=== PATIENT | female | born 1960 | race Caucasian/White ===

== ENCOUNTER 2021-12-21 19:18 | Emergency (ER) | payer OTHER, SELFPAY ==
[2021-12-21 19:32] VITALS: BP 147/73; PULSE 62; O2SAT 96; BMI 27.4
--- NOTE | 2021-12-21 20:13 | ED.WOUNDLAC ---
HPI - Wound/Laceration General Time Seen by Provider: 20:13 Date Seen: 12/21/21 Chief Complaint: Laceration/Wound Stated Complaint: LEFT INDEX FINGER LACERATION WITH SCISSORS Time Seen by Provider: 12/21/21 19:49 Source: patient and RN notes reviewed Mode of arrival: ambulatory Limitations: no limitations History of Present Illness HPI narrative: Patient is a very pleasant 61-year-old woman coming in with a wound on her left index finger. She was attempting to open a package that she was using a scissors on. She accidentally stabbed her left 2nd finger with the scissors. She is on an 81 mg aspirin for history of recurrent miscarriages in found to have antiphospholipid syndrome. She has never had a DVT. Despite pressure directly on this wound for over 30 minutes, it is still oozing. She denies any numbness tingling. Her tetanus was just updated and is up-to-date in August of 2021. She sustained no other injuries. Onset (ago): minute(s) Place: home Patient tetanus UTD: Yes Context: accidental Related Data Home Medications Medication Instructions Recorded Confirmed amlodipine 10 mg tablet mg 12/21/21 atenolol 25 mg tablet mg 12/21/21 bupropion HCl 150 mg 24 hr tablet, mg PO 12/21/21 extended release irbesartan 300 mg tablet mg 12/21/21 omeprazole 20 mg capsule,delayed mg 12/21/21 release trazodone 50 mg tablet mg 12/21/21 Allergies Allergy/AdvReac Type Severity Reaction Status Date / Time Sulfa (Sulfonamide Allergy Unknown Verified 12/21/21 19:37 Antibiotics) Review of Systems Narrative: As per HPI PFSH PFSH Social History Smoking Status: Never smoker Do you use any of these nicotine containing products: None Second hand tobacco smoke exposure: No How often do you have a drink containing alcohol: never How often do you have six or more drinks on one occasion: Never AUDIT-C Alcohol total score: 0 Non-prescribed substance use: denies use Exam Const: Vital Signs, click to edit/add: Vital Signs - 24 hr 12/21/21 19:32 Pulse Rate [Right Pulse Oximeter] 62 Blood Pressure [Le ft Upper Arm] 147/73 H Pulse Oximetry 96 Oxygen Delivery Me thod Room Air Documenting provider has reviewed patient's vital signs: yes Common normals: no apparent distress, oriented x3, no limitations, healthy appearing and alert Extremity: Other: Left 2nd finger has a proximally 1 cm laceration with some mild oozing along the palmar surface of the phalanx. It is just into the subcutaneous tissue, does not extend deeper. She has retained range of motion of this digit and retained strength. There is no loss of sensation. Neuro: Common normals: oriented x3 Sensorium/orientation: alert Course Vital Signs Vital signs: Initial Vital Signs Pulse Rate 62 12/21/21 19:32 Blood Pressure 147/73 H 12/21/21 19:32 Blood Pressure Mean 97 12/21/21 19:32 Blood Pressure Position Supine 12/21/21 19:32 Pulse Oximetry 96 12/21/21 19:32 Oxygen Delivery Method 12/21/21 19:32 Vital Signs Pulse Rate 62 12/21/21 19:32 Blood Pressure 147/73 H 12/21/21 19:32 Pulse Oximetry 96 12/21/21 19:32 Oxygen Delivery Method 12/21/21 19:32 Pulse Rate 62 12/21/21 19:32 Blood Pressure 147/73 H 12/21/21 19:32 Pulse Oximetry 96 12/21/21 19:32 Oxygen Delivery Method 12/21/21 19:32 Critical Care Time Critical Care Time Critical Care Time: No Discharge Plan Discharge Clinical Impression: Finger laceration Qualifiers: Encounter type: initial encounter Finger: index finger Damage to nail status: without damage Foreign body presence: without foreign body Laterality: left Qualified Code(s): S61.211A - Laceration without foreign body of left index finger without damage to nail, initial encounter Patient Disposition: Home, Self-Care Condition: Stable Instructions: Care For Your Stitches (ED), Finger Laceration (ED) Additional Instructions: Can take dressing off tomorrow. May wash hands and shower as usual but should otherwise keep this finger clean and dry until stitches are out. Need to have an appointment in about 7-10 days to assess the wound for suture removal, please contact her clinic to have this done. Can use bacitracin or Vaseline and bandages as needed to keep the wound clean. If there is concern for an infection, please seek re-evaluation. Prescriptions: No Action trazodone 50 mg tablet Label Comments: TAKE ONE TABLET BY MOUTH ONE TIME DAILY AT BEDTIME atenolol 25 mg tablet Label Comments: TAKE ONE TABLET BY MOUTH ONE TIME DAILY amlodipine 10 mg tablet omeprazole 20 mg capsule,delayed release(DR/EC) irbesartan 300 mg tablet Label Comments: TAKE ONE TABLET BY MOUTH ONE TIME DAILY bupropion HCl 150 mg tablet extended release 24 hr PO Label Comments: TAKE ONE TABLET BY MOUTH EVERY DAY IN THE MORNING. Follow Up/Referrals: Graeme Pugh MD [Primary Care Provider] - Stand Alone Forms: [facility] Info Instructions Procedures Laceration Laceration 1: Pre procedure diagnosis: Left index finger laceration Post procedure diagnosis: Same Site marking: not applicable Verification/time out: correct patient, correct site and correct procedure Name of person performing procedure: Yolande Ely Site: hand (Left index finger) Side (If applicable): left Size (cm): 1.0 Description: linear Depth: simple, single layer Local Anesthetic: lidocaine 1% and with epi Amount of anesthesia used (mL): 2.0 Pre-repair: wound explored Skin layer closed with: other Size (cm): 4-0 Number of sutures: 2 Technique: simple, interrupted Conclusion: patient tolerated procedure
--- NOTE | 2021-12-21 20:38 | ED.NURSE ---
Pt lac on L index finger bandaged with telfa and roll of gauze.
== END 2021-12-21 20:46 | disposition home or self-care (01) ==
LOC: ED 20:42
PROVIDERS: Emergency Provider Family Medicine; PCP Family Medicine
DX: S61.211A Laceration without foreign body of left index finger without damage to nail, initial encounter (principal); W27.2XXA Contact with scissors, initial encounter
CPT/HCPCS: 12001; 99283

== ENCOUNTER 2023-08-30 09:35 | Emergency (ER) | payer MEDICARE, BC, SELFPAY ==
[2023-08-30 09:51] VITALS: BP 160/78; PULSE 74; RESP 18; TEMP 36.8; O2SAT 95
--- NOTE | 2023-08-30 11:37 | CT_ITS ---
Patient: EDYTA SNOWDEN Facility:?[facility] RIS Patient ID:?[id number] Site Patient ID:?[id number]. Site :?[id number] Study:?CT-Abdomen/Pelvis W/ 83CC [id number]/[id number] 12:54:29 PM Ordering Physician:Alen Underwood Final Report: Indication: Right lower quadrant pain. Technique: CT of the abdomen and pelvis was performed following the administration of 83 mL Isovue 370. Comparison: None available. Findings: Visualized lung bases: Left lower lobe pulmonary cyst measuring 1.9 cm. Minimal subpleural reticulations in the lung bases may represent chronic interstitial change versus subsegmental atelectasis. Soft tissue density nodule measuring 9 mm in the lower outer quadrant of the right breast. Liver: Diffuse hepatic steatosis. 1.4 cm subcapsular fluid attenuation cyst within hepatic segment 4A. Calcified gallstone within the partially decompressed gallbladder. No pericholecystic inflammatory change. No biliary ductal dilation. Pancreas: Unremarkable. Spleen: Unremarkable. Adrenals: Indeterminate right adrenal nodule measuring 2.7 by 1.7 cm. Left adrenal gland is normal. Kidneys: Delayed right nephrogram with mild right hydronephrosis secondary to a 9 mm proximal ureteral calculus. There is mild urothelial enhancement within the upper tract of the right renal collecting system. Additional punctate lower pole right renal calculus too small to characterize hypodensity within the lower pole of the left kidney. No left hydronephrosis. Aorta/IVC: Minimal atherosclerotic aortic calcifications without aneurysmal dilation. Lymph nodes: No lymphadenopathy. Bowel: Nonobstructed bowel. Normal appendix. No localized inflammatory changes. No intraperitoneal free air or fluid. Pelvis: Partially decompressed bladder. The uterus is enlarged and abnormal in contour secondary to multiple uterine fibroids. The largest is at the level of the uterine fundus and measures roughly 5.9 cm in greatest dimension. There are associated coarse calcifications with this fibroid. There is resultant mass effect on the endometrial stripe. Simple appearing left adnexal cyst measures 2.5 cm. Bones/body wall: Unremarkable for age. Impression: 1. Obstructing right proximal ureteral calculus measuring 9 mm with mild right hydronephrosis, delayed enhancement of the right kidney and urothelial enhancement. Recommend correlation with urinalysis to evaluate for evidence of infection. 2. Subcentimeter soft tissue density nodule within the lower outer quadrant of the right breast. Recommend correlation with mammogram, if not recently performed. 3. Indeterminate right adrenal nodule measuring 2.7 cm. Recommend nonemergent adrenal protocol MRI or CT. 4. Left adnexal cyst measuring 2.5 cm. Recommend nonemergent pelvic ultrasound for further characterization. 5. Hepatic steatosis. Please note that all CT scans at this facility use dose modulation, iterative reconstruction, and/or weight-based dosing when appropriate to reduce radiation dose to as low as reasonably achievable. Dictated by Keya Flores MD @ 08/30/2023 1:12:09 PM Signed by:?Keya Flores MD @08/30/2023 1:12:09 PM (Electronic Signature)
--- NOTE | 2023-08-30 11:38 | ED_ITS ---
HPI - Abdominal Pain General Date Seen: 08/30/23 Chief Complaint: Abdominal Pain Stated Complaint: abdominal pain Time Seen by Provider: 08/30/23 11:27 Source: patient Mode of arrival: ambulatory Limitations: no limitations History of Present Illness HPI narrative: Patient is a 63-year-old female presenting for right lower quadrant abdominal pain. She states she went to [place] 2 weeks ago in shortly into the trip she started having nausea and diarrhea the continued throughout until she arrived home on Wednesday night. At that time she took and antiemetic that she is not sure what it was and the nausea fully resolved and has not returned. She also states the diarrhea has been improving but she did have a small amount this morning when she woke up. Has been eating well. She thinks she could just have gastroenteritis but was concerning because for the past 5 days she has been having intermittent right lower quadrant abdominal pain that she described as sharp in nature. Denies any previous abdominal or OB surgeries. Has been eating and drinking without issue since arriving home. Denies fevers, chills, chest pain, shortness of breath, weakness, lightheadedness, dizziness. No other concerns noted at this time. Currently asymptomatic but did have 3 episodes of the pain overnight peer Related Data Home Medications Medication Instructions Recorded Confirmed amlodipine 10 mg tablet mg 12/21/21 11/19/22 bupropion HCl 150 mg 24 hr tablet, mg PO 12/21/21 11/19/22 extended release irbesartan 300 mg tablet mg 12/21/21 11/19/22 omeprazole 20 mg capsule,delayed mg 12/21/21 11/19/22 release trazodone 50 mg tablet mg 12/21/21 11/19/22 Previous Rx's Medication Instructions Recorded oxycodone 5 mg capsule 5 mg PO Q6H PRN pain #12 caps 08/30/23 tamsulosin 0.4 mg capsule 0.4 mg PO DAILY #30 caps 08/30/23 Allergies Allergy/AdvReac Type Severity Reaction Status Date / Time Sulfa (Sulfonamide Allergy Unknown Verified 08/30/23 09:57 Antibiotics) Review of Systems Status of ROS Reports: 10 or more systems reviewed and unremarkable except as noted in History and below [facility] Medical History Wheeze ?R06.2 - Wheezing (ICD-10) Social History Smoking Status: Never smoker Do you use any of these nicotine containing products: None Second hand tobacco smoke exposure: No How often do you have a drink containing alcohol: never How often do you have six or more drinks on one occasion: Never AUDIT-C Alcohol total score: 0 Non-prescribed substance use: denies use Exam Narrative: Exam Narrative: Const: Well-nourished, Well-developed, in no distress Eyes: PERRL, no conjunctival injection, and symmetrical lids HENT: Atraumatic external nose and ears. Moist mucous membranes. Neck: Symmetric, trachea midline, No thyromegaly. CVS: RRR, No murmurs or gallops. Peripheral pulses 2+ and equal in all extremities RESP: Unlabored respiratory effort. Clear to auscultation bilaterally. GI: Nontender/Nondistended, No rebound or guarding. MSK:Extremities w/o deformity, Normal Active ROM Skin: Warm, Dry. No rashes or lesions. Neuro: Normal Muscle tone, No focal neurological deficits. Psych: Awake, Alert, & Oriented x3. Appropriate mood and affect. Const: Vital Signs, click to edit/add: Vital Signs - 24 hr 08/30/23 09:51 Temperature 98.2 F Pulse Rate [Right] 74 Respiratory Rate 18 Blood Pressure [Ri ght Upper Arm] 160/78 H Pulse Oximetry 95 Oxygen Delivery Me thod Room Air Course Vital Signs Vital signs: Initial Vital Signs Temperature 98.2 F 08/30/23 09:51 Temperature Source Temporal Artery Scan 08/30/23 09:51 Pulse Rate 74 08/30/23 09:51 Respiratory Rate 18 08/30/23 09:51 Blood Pressure 160/78 H 08/30/23 09:51 Blood Pressure Mean 105 08/30/23 09:51 Blood Pressure Position Sitting 08/30/23 09:51 Pulse Oximetry 95 08/30/23 09:51 Oxygen Delivery Method Room Air 08/30/23 09:51 Vital Signs Temperature 98.2 F 08/30/23 09:51 Pulse Rate 74 08/30/23 09:51 Respiratory Rate 18 08/30/23 09:51 Blood Pressure 160/78 H 08/30/23 09:51 Pulse Oximetry 95 08/30/23 09:51 Oxygen Delivery Method Room Air 08/30/23 09:51 Temperature 98.2 F 08/30/23 09:51 Pulse Rate 74 08/30/23 09:51 Respiratory Rate 18 08/30/23 09:51 Blood Pressure 160/78 H 08/30/23 09:51 Pulse Oximetry 95 08/30/23 09:51 Oxygen Delivery Method Room Air 08/30/23 09:51 MDM - Abdominal Pain MDM Narrative Medical decision making narrative: Patient is a 63-year-old female presenting for right lower quadrant abdominal pain. I am initial concern is for appendicitis. While the pain is intermittent and seems unusual for appendicitis I will do a CT scan to rule it out. While it could be gastroenteritis from a viral syndrome so COVID/flu/RSV were ordered. Both were CBC, CMP, urinalysis. She is not having any urinary symptoms this time though. I asked she feels like she needs the IV fluids and she states no. Also states she does not need anything for pain or nausea at this time. Lab work returned showing no concerning findings but there was blood in your urine. No signs of UTI. I am concerned about a kidney stone at this time. CT scan returned showing a obstructing right proximal ureteral 9 mm stone with mild hydronephrosis. Again there is no signs of a UTI so this not appear to be infected stone. While she may have trouble passing it I do not believe she has day in the hospital for this. Will be discharged home and given oxycodone for when she does developed pain. Will also give her tamsulosin. I spoke to her about the other CT findings and she is aware. Patient be discharged at this time Lab Data Labs: Lab Results 08/30/23 08/30/23 08/30/23 Range/Units 11:18 11:55 12:06 WBC 7.83 (4.50-11.00) K/uL RBC 4.36 (4.00-5.20) m/uL Hgb 13.2 (12.0-16.0) gm/dL Hct 38.6 (33.0-51.0) % MCV 89 (80-100) fL MCH 30 (26-34) pg MCHC 34 (32-36) gm/dL RDW Coeff of Tamara 12.6 (11.5-15.5) % Plt Count 349 (140-440) K/uL Neut % (Auto) 72.7 H (42.0-72.0) % Lymph % (Auto) 20.2 (20-44) % Morgan % (Auto) 6.6 (0.0-11.0) % Eos % (Auto) 0.1 (0.0-7.0) % Baso % (Auto) 0.3 (0.0-3.0) % Neut # (Auto) 5.70 (1.7-7.0) K/uL Lymph # (Auto) 1.58 (0.90-2.90) K/uL Morgan # (Auto) 0.50 (0.00-0.90) K/UL Eos # (Auto) 0.01 (0.00-0.50) K/uL Baso # (Auto) 0.02 (0.00-0.30) K/uL Abs Immat Gran (auto) 0.01 (0.00-0.30) K/uL Imm/Tot Granulo (auto) 0.1 % Sodium 140 (135-149) mmol/L Potassium 3.7 (3.6-5.1) mmol/L Chloride 107 (96-114) mmol/L Carbon Dioxide 28 (20-32) mmol/L Anion Gap 5 L (7-15) mEq/L BUN 15 (7-30) mg/dL Creatinine 0.8 (0.5-1.5) mg/dL Estimated GFR 82 ml/min Glucose 135 H (60-115) mg/dL Calcium 9.1 (8.4-10.6) mg/dL Total Bilirubin 0.6 (0.1-1.5) mg/dL AST 30 (12-35) U/L ALT 38 H (4-35) U/L Alkaline Phosphatase 67 (40-150) U/L Total Protein 8.8 H (6.0-8.3) g/dL Albumin 4.2 (3.3-5.0) g/dL Urine Color Yellow (Yellow) Urine Appearance Clear (Clear) Urine pH 5.5 (5.0-8.5) Ur Specific [place] 1.015 (1.000-1.030) Urine Protein 1+ A (Negative) Urine Glucose (UA) Negative (Negative) Urine Ketones Negative (Negative) Urine Blood 3+ A (Negative) Urine Nitrite Negative (Negative) Urine Bilirubin Negative (Negative) Urine Urobilinogen 0.2 (0.2-1.0) Ur Leukocyte Esterase Negative (Negative) Urine RBC 25-50 A (0-2) Urine WBC 0-2 (0-5) Ur Squamous Epith Cells None (None-Few) Amorphous Sediment Few A (None) Urine Bacteria None (None) SARS-CoV-2 (PCR) Negative SARS-CoV-2 (Negative) Influenza Type A (PCR) Negative PCR FLU A (Negative) Influenza Type B (PCR) Negative PCR FLU B (Negative) RSV (PCR) Negative PCR RSV (Negative) POC Creatinine 0.9 (0.6-1.3) mg/dl Imaging Data CT scan abdominal and Pelvis: Attestation: I have reviewed the pertinent imaging results. Radiologist's impression: 1. Obstructing right proximal ureteral calculus measuring 9 mm with mild right hydronephrosis, delayed enhancement of the right kidney and urothelial enhancement. Recommend correlation with urinalysis to evaluate for evidence of infection. 2. Subcentimeter soft tissue density nodule within the lower outer quadrant of the right breast. Recommend correlation with mammogram, if not recently performed. 3. Indeterminate right adrenal nodule measuring 2.7 cm. Recommend nonemergent adrenal protocol MRI or CT. 4. Left adnexal cyst measuring 2.5 cm. Recommend nonemergent pelvic ultrasound for further characterization. 5. Hepatic steatosis. Please note that all CT scans at this facility use dose modulation, iterative reconstruction, and/or weight-based dosing when appropriate to reduce radiation dose to as low as reasonably achievable. Dictated by Keya Flores MD @ 08/30/2023 1:12:09 PM Discharge Plan Discharge Clinical Impression: Nephrolithiasis Patient Disposition: Home, Self-Care Condition: Stable Instructions: Kidney Stones (ED), How to Strain Your Urine (ED) Additional Instructions: You have a 9 mm kidney stone that may not be able to pass on its own. You may need to see a urologist to have it removed. Either follow up with them or your PCP. Take ibuprofen for pain but if it does not help try the oxycodone. If you develop signs of UTI or other signs of infection before you pass the stone return to ED for reevaluation. The tamsulosin will help you with passing the stone Also followup with your PCP for these following incidental findings. Subcentimeter soft tissue density nodule within the lower outer quadrant of the right breast. Recommend correlation with mammogram, if not recently performed. Indeterminate right adrenal nodule measuring 2.7 cm. Recommend nonemergent adrenal protocol MRI or CT. Left adnexal cyst measuring 2.5 cm. Recommend nonemergent pelvic ultrasound for further characterization. Hepatic steatosis. Prescriptions: New oxycodone 5 mg capsule 5 mg PO Q6H PRN (Reason: pain) Qty: 12 0RF tamsulosin 0.4 mg capsule 0.4 mg PO DAILY Qty: 30 0RF No Action trazodone 50 mg tablet Patient Comments: TAKE ONE TABLET BY MOUTH ONE TIME DAILY AT BEDTIME amlodipine 10 mg tablet omeprazole 20 mg capsule,delayed release(DR/EC) irbesartan 300 mg tablet Patient Comments: TAKE ONE TABLET BY MOUTH ONE TIME DAILY bupropion HCl 150 mg tablet extended release 24 hr PO Patient Comments: TAKE ONE TABLET BY MOUTH EVERY DAY IN THE MORNING. Follow Up/Referrals: Graeme Pugh MD [Primary Care Provider] - Stand Alone Forms: [facility] Info Instructions
[2023-08-30 11:48] LABS: Appearance Urine Clear (Clear); Bilirubin Urine Negative (Negative); Blood Urine 3+ (Negative); Color Urine Yellow (Yellow); Glucose Urine Negative (Negative); Ketones Urine Negative (Negative); Leukocyte Esterase Urine Negative (Negative); Nitrite Urine Negative (Negative); Protein Urine 1+ (Negative); Specific Gravity Urine 1.015 (1.000-1.030); Urobilinogen Urine 0.2 (0.2-1.0); pH Urine 5.5 (5.0-8.5)
[2023-08-30 11:58] LABS: Amorphous Sediment Urine Few; RBC Urine 25-50 (0-2); WBC Urine 0-2 (0-5)
[2023-08-30 12:05] LABS: Basophils Absolute Auto 0.02 K/uL (0.00-0.30); Basophils Percent Auto 0.3 % (0.0-3.0); Eosinophils Absolute Auto 0.01 K/uL (0.00-0.50); Eosinophils Percent Auto 0.1 % (0.0-7.0); Hematocrit 38.6 % (33.0-51.0); Hemoglobin* 13.2 gm/dL (12.0-16.0); Immature Granulocytes Abs Auto 0.01 K/uL (0.00-0.30); Immature Granulocytes Pct Auto 0.1 %; Lymphocytes Absolute Auto 1.58 K/uL (0.90-2.90); Lymphocytes Percent Auto 20.2 % (20-44); Mean Corpuscular HGB Conc 34 gm/dL (32-36); Mean Corpuscular Hemoglobin 30 pg (26-34); Mean Corpuscular Volume 89 fL (80-100); Monocytes Percent Auto 6.6 % (0.0-11.0); Neutrophils Percent Auto 72.7 % (42.0-72.0); Platelet Count* 349 K/uL (140-440); RDW Coefficient of Variation % 12.6 % (11.5-15.5); Red Blood Count 4.36 m/uL (4.00-5.20); White Blood Count* 7.83 K/uL (4.50-11.00)
[2023-08-30 12:12] LABS: Creatinine, Point-of-Care* 0.9 mg/dl (0.6-1.3)
[2023-08-30 12:16] LABS: Slide Review Reflex No
[2023-08-30 12:32] LABS: Albumin* 4.2 g/dL (3.3-5.0); Chloride* 107 mmol/L (96-114); Potassium* 3.7 mmol/L (3.6-5.1); Sodium* 140 mmol/L (135-149)
[2023-08-30 12:34] LABS: Anion Gap 5 mEq/L (7-15); Aspartate Amino Transferase* 30 U/L (12-35); Bilirubin Total* 0.6 mg/dL (0.1-1.5); Carbon Dioxide* 28 mmol/L (20-32); Creatinine* 0.8 mg/dL (0.5-1.5); Estimated Glomerular Filt Rate 82 ml/min; Total Protein* 8.8 g/dL (6.0-8.3)
[2023-08-30 12:35] LABS: Alanine Aminotransferase* 38 U/L (4-35); Alkaline Phosphatase* 67 U/L (40-150); Blood Urea Nitrogen* 15 mg/dL (7-30); Calcium* 9.1 mg/dL (8.4-10.6); Glucose* 135 mg/dL (60-115)
[2023-08-30 12:40] LABS: PCR FLU A Negative PCR FLU A (Negative); PCR FLU B Negative PCR FLU B (Negative); PCR RSV Negative PCR RSV (Negative); SARS PCR* Negative SARS-CoV-2 (Negative)
[2023-08-30 13:24] VITALS: BP 166/92; PULSE 71; RESP 20; O2SAT 96
== END 2023-08-30 13:56 | disposition home or self-care (01) ==
PROVIDERS: Emergency Provider Student in an Organized Health Care Education/Training Program; PCP Family Medicine
DX: N20.0 Calculus of kidney (principal)
CPT/HCPCS: 36415; 74177; 80053; 81001; 82565; 85025; 87631; 99283; 99284; Q9967

== ENCOUNTER 2023-09-16 00:11 | Emergency (ER) | payer MEDICARE, BC, SELFPAY ==
[2023-09-16 00:30] VITALS: BP 141/85; PULSE 78; RESP 18; TEMP 36.7; O2SAT 99; BMI 32.1
[2023-09-16] MEDS: MELATONIN 3 MG TABLET 6 MG PO (01:43)
[2023-09-16] MEDS: TAMSULOSIN HCL 0.4 MG CAPSULE PO (01:43)
[2023-09-16] MEDS: OXYCODONE 5 MG TABLET PO (02:00)
[2023-09-16] MEDS: ONDANSETRON ODT 4 MG TAB PO (02:00)
--- NOTE | 2023-09-16 02:08 | ED.GENADULT ---
HPI - General Adult General Chief complaint: Urogenital Problems, Female Stated complaint: bladder spasms after kidney stone surgery Time Seen by Provider: 09/16/23 00:40 Source: patient Mode of arrival: ambulatory Limitations: no limitations History of Present Illness HPI narrative: 63-year-old female with a recent kidney stone that was 9 mm, ultimately had stent placement a couple of weeks ago and had the stent removed with a cystoscopy and follow-up x-ray about 12 hours prior to presentation. Patient states that since she left the urology office she has been having what she thinks are painful bladder spasms with urinary frequency and urgency. No viktor dysuria and she actually is still on antibiotics. No fevers, severe abdominal pain or back pain. She had not had any vomiting until she tried taking a tramadol for her pain and then she has been nauseated. She has tried a little bit of Tylenol and ibuprofen throughout the day and finally gave in and took her 1st narcotic which was 1 tramadol a couple of hours ago. She has not used any narcotics during this stone process thus far. She has also been trying azo which has of course discolored her urine significantly and would make urinalysis difficult to interpret, unfortunately without any relief. She is able to void, feels when her bladder seems to be full. No stool changes, no unusual vaginal discharge. No other trauma or injury. This was her 1st kidney stone. Past medical history is notable for hypertension, hyperlipidemia, recent stone with stent removal. Allergies are to sulfas. ROS is notable for the urinary symptoms as above only, otherwise denies times 12 systems. Related Data Home Medications Medication Instructions Recorded Confirmed bupropion HCl 150 mg 24 hr tablet, 150 mg PO DAILY 12/21/21 09/16/23 extended release irbesartan 300 mg tablet 300 mg PO DAILY 12/21/21 09/16/23 omeprazole 20 mg capsule,delayed 20 mg PO DAILY 12/21/21 09/16/23 release trazodone 50 mg tablet 50 mg PO HS 12/21/21 09/16/23 amlodipine 5 mg tablet 5 mg PO DAILY 09/16/23 09/16/23 carvedilol 12.5 mg tablet 12.5 mg PO BID 09/16/23 09/16/23 carvedilol 25 mg tablet 25 mg PO BID 09/16/23 09/16/23 tramadol 50 mg tablet 50 mg PO BID 09/16/23 09/16/23 Previous Rx's Medication Instructions Recorded tamsulosin 0.4 mg capsule 0.4 mg PO DAILY #30 caps 08/30/23 ondansetron 4 mg disintegrating 4 mg PO Q8H PRN nausea and 09/16/23 tablet vomiting #10 tabs tamsulosin 0.4 mg capsule 0.4 mg PO DAILY #5 caps 09/16/23 Allergies Allergy/AdvReac Type Severity Reaction Status Date / Time Sulfa (Sulfonamide Allergy Unknown Verified 09/16/23 00:35 Antibiotics) [facility] Medical History Wheeze ?R06.2 - Wheezing (ICD-10) Social History Smoking Status: Never smoker Do you use any of these nicotine containing products: None Second hand tobacco smoke exposure: No How often do you have a drink containing alcohol: never How often do you have six or more drinks on one occasion: Never AUDIT-C Alcohol total score: 0 Non-prescribed substance use: denies use Exam Const: Vital Signs, click to edit/add: Vital Signs - 24 hr 09/16/23 00:30 09/16/23 02:12 09/16/23 02:14 Temperature 98.0 F 98.0 F 98.0 F Pulse Rate [Right Pulse Oximeter] 78 85 85 Respiratory Rate 18 18 18 Blood Pressure [Ri ght Upper Arm] 141/85 H 137/74 137/74 Pulse Oximetry 99 99 Oxygen Delivery Me thod Room Air Room Air Documenting provider has reviewed patient's vital signs: yes Common normals: no apparent distress General appearance: cooperative and well kempt Other: Appears a little uncomfortable. Does not vomit during her time here in the ED. HENMT: Face and sinus: normal facial exam Mouth: oral and palatal mucosa normal Eye: General eye: normal appearance of both eyes Resp: Common normals: normal respiratory effort Effort & inspection: able to speak in complete sentences Cardio: Common normals: regular rate, regular rhythm, S1 normal heart sound, S2 normal heart sound and no murmurs Rate: regular rate Rhythm: regular rhythm Heart sounds: S1 normal and S2 normal GI: Common normals: Normal to inspection, nondistended, normoactive bowel sounds present, soft to palpation, non-tender, no hepatosplenomegaly and no masses Palpation: soft and no hepatosplenomegaly : Common normals: no CVA tenderness Bladder/kidney exam: no CVA tenderness Back & Pelvis: Common normals: no CVA tenderness Extremity: Common normals: normal to inspection and normal capillary refill Psych: Appearance: well kempt Mood and affect: euthymic mood Insight: insight good Judgement: judgment good Skin: Common normals: no rashes or lesions noted General skin exam: no rashes or lesions noted Course Course ED Course: Bladder spasm after cystoscopy and stent removal today. Unlikely to have perforation, infection. Still on antibiotics and is voiding without significant difficulty. Urinalysis would be impaired by her azo, but as stated infection is unlikely. Blood would be expected. Abdomen is nice and soft decreasing the chance for peritonitis. Overall, I think she is correct that the uncomfortable feeling is from bladder spasm. Unfortunately, B and O suppositories are on back order. Discussed Flomax and how it can be used off-label for bladder and ureteral spasms with some success. Counseled that for most people the symptoms are markedly better in about 48 hours. She was quite a bit reassured by this. We agreed to start a few days of Flomax, discussed proper dosing of Tylenol and ibuprofen and reassured that this is okay to use. Gave oxycodone and some melatonin to help her sleep since her can quickly drive her home and some Zofran to help nausea. 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 She has several doses of tramadol and oxycodone at home if she needs them in the next couple of days. If her symptoms have not markedly improved in 36 hours, I want her to contact her urologist for further guidance. Any severe symptoms would be indications to come back to the ED and I would have a low threshold for repeating her CT scan. At this time she agrees that symptomatic treatment seems best and promises to come back if there is unexpected worsening. See discharge instructions. Vital Signs Vital signs: Initial Vital Signs Temperature 98.0 F 09/16/23 00:30 Temperature Source Temporal Artery Scan 09/16/23 00:30 Pulse Rate 78 09/16/23 00:30 Respiratory Rate 18 09/16/23 00:30 Blood Pressure 141/85 H 09/16/23 00:30 Blood Pressure Mean 103 09/16/23 00:30 Blood Pressure Position Sitting 09/16/23 00:30 Pulse Oximetry 99 09/16/23 00:30 Oxygen Delivery Method Room Air 09/16/23 00:30 Vital Signs Temperature 98.0 F 09/16/23 00:30 Pulse Rate 78 09/16/23 00:30 Respiratory Rate 18 09/16/23 00:30 Blood Pressure 141/85 H 09/16/23 00:30 Pulse Oximetry 99 09/16/23 00:30 Oxygen Delivery Method Room Air 09/16/23 00:30 Temperature 98.0 F 09/16/23 02:14 Pulse Rate 85 09/16/23 02:14 Respiratory Rate 18 09/16/23 02:14 Blood Pressure 137/74 09/16/23 02:14 Pulse Oximetry 99 09/16/23 02:12 Oxygen Delivery Method Room Air 09/16/23 02:12 Medications Administered Medications: Discontinued Medications Generic Name Dose Route Start Last Admin Trade Name Freq PRN Reason Stop Dose Admin Melatonin 6 mg 09/16/23 01:38 09/16/23 01:43 Melatonin 3 Mg Tablet PO 09/16/23 01:39 6 mg ONCE ONE Administration Ondansetron HCl 4 mg 09/16/23 01:57 09/16/23 02:00 Ondansetron Odt 4 Mg Tab PO 09/16/23 01:58 4 mg ONCE ONE Administration Oxycodone HCl 5 mg 09/16/23 01:57 09/16/23 02:00 Oxycodone 5 Mg Tablet PO 09/16/23 01:58 5 mg ONCE ONE Administration Tamsulosin HCl 0.4 mg 09/16/23 01:38 09/16/23 01:43 Tamsulosin Hcl 0.4 Mg Capsule PO 09/16/23 01:39 0.4 mg ONCE ONE Administration Discharge Plan Discharge Clinical Impression: Bladder spasm Patient Disposition: Home w/ Parent or Adult Condition: Improved Additional Instructions: There do not seem to be any signs of significant complication, perforation or other unexpected side effects from your procedure. I am sorry that the spasm is so bothersome. Unfortunately, this is not unusual. I have started you on tamsulosin, also known as Flomax. For many people, this can reduce the feeling of spasm. Take another dose at bedtime tonight as in . Continue taking this once nightly until all 5 pills are gone. It is okay to use Benadryl and or melatonin to help you sleep if needed. Proper dosing of Tylenol as 1000 mg every 6 hours, I would plan to take this automatically for at least the next 48 hours. If the pain is still bothersome, add in ibuprofen 600 mg every 6 hours. I have given you a dose of oxycodone here in the emergency department. You may continue to use this at home. I would try to save it for bedtime and may be try to get by with the Tylenol, ibuprofen and tramadol during the day if needed. I have given her prescription for Zofran for nausea also if needed I would expect things to be markedly better in 48 hours. I would update your surgeon if things are not doing somewhat better by mid day on Wednesday. Please come back to the emergency department if you have severe lower abdominal pain, high fevers, inability to empty your bladder. You may continue taking the azo, it will not be harmful but it may not be helpful for you. It will not interfere with any of the other medications. As stated, I cannot be completely sure that there was not a complication without doing a CT scan but the radiation risk does not seem to be warranted today. Hopefully the medications give you enough relief to be comfortable. Activity Level: Activity as Tolerated Discharge Diet: Regular Prescriptions: New tamsulosin 0.4 mg capsule 0.4 mg PO DAILY Qty: 5 0RF Rx Instructions: Once daily to help prevent bladder and ureteral spasm ondansetron 4 mg tablet,disintegrating 4 mg PO Q8H PRN (Reason: nausea and vomiting) Qty: 10 0RF No Action carvedilol 25 mg tablet 25 mg PO BID carvedilol 12.5 mg tablet 12.5 mg PO BID amlodipine 5 mg tablet 5 mg PO DAILY tramadol 50 mg tablet 50 mg PO BID trazodone 50 mg tablet 50 mg PO HS Patient Comments: TAKE ONE TABLET BY MOUTH ONE TIME DAILY AT BEDTIME omeprazole 20 mg capsule,delayed release(DR/EC) 20 mg PO DAILY irbesartan 300 mg tablet 300 mg PO DAILY Patient Comments: TAKE ONE TABLET BY MOUTH ONE TIME DAILY bupropion HCl 150 mg tablet extended release 24 hr 150 mg PO DAILY Patient Comments: TAKE ONE TABLET BY MOUTH EVERY DAY IN THE MORNING. tamsulosin 0.4 mg capsule 0.4 mg PO DAILY Qty: 30 0RF Follow Up/Referrals: Graeme Pugh MD [Primary Care Provider] - Stand Alone Forms: [employer] Info Instructions
[2023-09-16 02:12] VITALS: BP 137/74; PULSE 85; RESP 18; TEMP 36.7; O2SAT 99
[2023-09-16 02:14] VITALS: BP 137/74; PULSE 85; RESP 18; TEMP 36.7
== END 2023-09-16 02:14 | disposition home or self-care (01) ==
PROVIDERS: Emergency Provider Family Medicine; PCP Family Medicine
DX: N32.89 Other specified disorders of bladder (principal)
CPT/HCPCS: 81003; 99283; A9270

== ENCOUNTER 2023-10-01 13:40 | Outpatient (CLI) | payer MEDICARE, BC, SELFPAY | END 2023-10-01 13:41 | disposition home or self-care (01) | LOC: NFLDREF 10-21 08:57 | PROVIDERS: PCP Family Medicine; Referring Provider Family Medicine; Visit Provider Obstetrics & Gynecology | DX: N83.8 Other noninflammatory disorders of ovary, fallopian tube and broad ligament (principal) | CPT/HCPCS: 82378; 86301; 86304 ==

== ENCOUNTER 2023-12-22 12:47 | Outpatient (CLI) | payer MEDICARE, BC, SELFPAY ==
--- NOTE | 2023-12-22 13:00 | CRLHL7_ITS ---
For Patients: As a result of the Century Cures Act, medical imaging exams and procedure reports are released immediately into your electronic medical record. You may view this report before your referring provider. If you have questions, please contact your health care provider. INDICATION: Left ovarian cyst, uterine fibroids COMPARISON: CT 08/30/2023 TECHNIQUE: 2D marley scale and color Doppler images were acquired of the pelvis using a transabdominal and transvaginal approach. FINDINGS: Partially exophytic mid anterior fibroid noted measures 2.9 x 2.1 x 2.5 cm. Partially exophytic posterior fundal fibroid measures 4.2 x 3.6 x 3.4 cm. Calcification in the uterine fundus measures 1.3 x 1.5 x 0.8 cm. Left posterior fibroid measures 1.9 x 1.6 x 2.1 cm. Uterus measures 10.3 cm in length by 4.9 cm in AP diameter by 6.1 cm in transverse dimension. The endometrium is obscured by the multiple fibroids. The right ovary measures 2.6 x 1.5 x 1.7 cm in size and the left ovary measures 4.9 x 1.6 x 1.8 cm. Simple left ovarian cyst is present measuring 2.6 x 1.5 x 1.7 cm. The ovaries demonstrate normal arterial and venous blood flow on color Doppler analysis. There are no suspicious fluid collections within the cul-de-sac. IMPRESSION: Multiple uterine fibroids measuring up to 4.2 cm. Endometrium is obscured by the fibroids. Simple left ovarian cyst measures 2.6 x 1.5 x 1.7 cm. Dictated by Evert Holt MD @ 12/23/2023 5:46:53 AM (Electronically Signed)
== END 2023-12-22 12:48 | disposition home or self-care (01) ==
LOC: US 12:47
PROVIDERS: PCP Family Medicine; Visit Provider Obstetrics & Gynecology
DX: N83.8 Other noninflammatory disorders of ovary, fallopian tube and broad ligament (principal); N83.202 Unspecified ovarian cyst, left side; N83.292 Other ovarian cyst, left side
CPT/HCPCS: 76830; 76856